=== PATIENT | male | born 1975 | race American Indian/Alaskan Native ===

== ENCOUNTER 2017-09-23 10:13 | Emergency (ER) | payer OTHER ==
[2017-09-23 10:22] VITALS: BP 150/83; PULSE 97; TEMP 97; O2SAT 98
[2017-09-23 10:23] VITALS: BMI 35.6
[2017-09-23] MEDS ORDERED: Tmp-Smz 800 mg-160 mg DS Tab PO ONE (11:21)
--- NOTE | 2017-09-23 11:26 | ED PDOC ---
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 Patient states pain shoots down the Left gluteal region and when sitting the pain is more severe. No wound discharge/bleeding is noted Denies fever/chills/sweats/bodyaches Denies chest pain/shortness of breath/palpitations Denies abdominal pain/nausea/vomiting Denies urinary symptoms/bowel change Denies urinary and bowel incontinence Denies any fall/trauma/sick contact/traveling plant operator's without other complaints Arrived to the ED for further evaluation. PMD: None Provided pt with prior boils in the past requiring I&D to right axilla/right inguinal region Past Medical History Reviewed: Historical Data, Nursing Documentation, Vital Signs Vital Signs: Last Vital Signs Temp 97 F L 09/23/17 10:21 Pulse 97 H 09/23/17 10:21 Resp BP 150/83 09/23/17 10:21 Pulse Ox 98 09/23/17 10:21 - Medical History PMH: Diabetes, Gastrointestinal Ulcer, HTN Denies: Alzheimer's Disease, Chronic Kidney Disease - Surgical History Surgical History: No Surg Hx - Family History Family History: States: Unknown Family Hx - Living Arrangements Living Arrangements: With Family - Social History Current smoker - smoking cessation education provided: No Ex-Smoker (has not smoked in the last 12 months): No Alcohol: None Drugs: Denies - Immunization History Hx Tetanus Toxoid Vaccination: Yes (3 years ago) Hx Influenza Vaccination: Yes Hx Pneumococcal Vaccination: No - Home Medications Home Medications: Ambulatory Orders Medication Instructions Recorded Doxycycline Hyclate [Doryx] 100 mg PO BID #14 cap 06/12/16 traMADol [Ultram] 50 mg PO TID #10 tab 06/12/16 Acetaminophen/Hydrocodone Bi 1 - 2 tab PO QID PRN #15 tab 09/23/17 [Vicodin 300 mg-5 mg] Ibuprofen [Motrin] 600 mg PO QID PRN #30 tab 09/23/17 Sulfamethoxazole/Trimethoprim 1 tab PO BID #19 tab 09/23/17 [Bactrim DS 800 mg-160 mg] - Allergies Allergies/Adverse Reactions: Allergies Allergy/AdvReac Type Severity Reaction Status Date / Time shrimp Allergy Intermediate RASH Verified 09/23/17 10:49 Review of Systems ROS Statement: Except As Marked, All Systems Reviewed And Found Negative Constitutional: Negative for: Fever, Chills, Sweats, Weakness Eyes: Negative for: Pain ENT: Negative for: Ear Pain, Nose Pain Cardiovascular: Negative for: Chest Pain, Palpitations Respiratory: Negative for: Cough, Shortness of Breath, SOB with Exertion Gastrointestinal: Negative for: Nausea, Vomiting, Abdominal Pain Genitourinary Male: Negative for: Dysuria, Frequency, Incontinence Musculoskeletal: Positive for: Back Pain (lower back discomfort radiating to left glutial region) Skin: Positive for: Other (possible boil on lower back ) Physical Exam - Reviewed Nursing Documentation Reviewed: Yes Vital Signs Reviewed: Yes (elevated BP) - Physical Exam Comments: General: alert/awake, GCS = 15, oriented x 3, resting/sitting on bed, uncomfortable, cooperative, interactive; NAD Head: NC/AT EYE: PERRLA, EOMI, sclera anicteric, no nystagmus, no photophobia; visual field intact b/l Facial: WNL Oral: uvula/tongue are midline, no exudate/lesions, no drooling/stridor, no dysphonia; intact dentitions NECK: intact ROM, no midline tenderness, no nuchal rigidity, no meningeal signs ; no step off Chest: CTA b/l, no w/r/r; no tachypenia, no accessory muscle use noted Cardiac: +S1, +S2, no m/r/r, no tachycardia Abdominal: +BS, soft/nd/nt, well nourished/obese patient; no masses/rebound/ guarding/rigidity; no gonzalez's sign, no mcburney's point tenderness RECTAL: noted slightly indurated lesion over the perry cleft of the buttocks ( left sided), 3x4 cm in size; NON-fluctuant; mild tenderness over the lesion site ; no gross skin erythema noted, no open wounds noted, no drainage/expressible discharge is noted; no foul smelling discharge is noted Extremities: intact ROM, strength 5/5 grossly intact in all limbs, neurovasc intact b/l; + ambulatory; reflex +2/2 BACK: no step off, no midline tenderness, NO crepitus, no gross deformities noted; Intact ROM SKIN: cap refill < 1 sec, no ulcerations, no petechiae, no rashes; as described above rectal finding NEURO: CNII-XII WNL, no facial asymmetries, no slurr speech, oriented x 3 NIH stroke scale ~ 0 Psych: normal insight, normal affect; follows command with ease - Laboratory Results Interpretation Of Abnormal: elevated gluc - ECG O2 Sat by Pulse Oximetry: 98 (RA) Pulse Ox Interpretation: Normal - Progress ED Course And Treament: pt is made aware of his medical results pt is encouraged warm compress 20min/hr over the next few days pt is encouraged obtaining a doughnut cushion so he can sit without severe pain pt is encouraged wound care pt will f/u as directed pt will be discharged home Re-evaluation Time: 11:35 Condition: Unchanged Medical Decision Making Medical Decision Making: Time: 1120 Plan: pilonidal abscess -- Bactrim DS Tablet 1 PO -- Accucheck -- observe -- supportive care Scribe Attestation: Documented by Stacia Worthington, acting as a scribe for Dr. Jeremy Cotter MD Provider Scribe Attestation: All medical record entries made by the Scribe were at my direction and personally dictated by me. I have reviewed the chart and agree that the record accurately reflects my personal performance of the history, physical exam, medical decision making, and the department course for this patient. I have also personally directed, reviewed, and agree with the discharge instructions and disposition. Disposition - Clinical Impression Clinical Impression: Pilonidal abscess, Hyperglycemia, Elevated blood pressure reading - Patient ED Disposition Is Patient to be Admitted: No Counseled Patient/Family Regarding: Diagnosis, Need For Followup, Rx Given - Disposition Referrals: [facility] [Outside] [facility] [place] [Outside] [facility] [Outside] PCP,NO [Non-Staff] - Jules Toney MD [Staff Provider] - Disposition: Routine/Home Disposition Time: 11:45 Condition: STABLE Additional Instructions: Make sure to see your doctor in 1-2 days DRINK PLENTY OF FLUIDS WARM soaks is encouraged 20min/hr over the next few days KEEP WOUND CLEAN AND DRY take your medications as prescribed RETURN TO ED IF worse pain, cant breath, persistent vomiting, high fever >101- 102 for hours, altered behavior, slurr speech, facial changes, focal weakness ( arm/leg or both), unable to urinate, heavy/persistent bleeding, passing out, chest pain, or other medical emergencies Prescriptions: Acetaminophen/Hydrocodone Bi [Vicodin 300 mg-5 mg] 1 - 2 tab PO QID PRN #15 tab PRN Reason: Pain, Moderate (4-7) Ibuprofen [Motrin] 600 mg PO QID PRN #30 tab PRN Reason: Pain, Mild (1-3) Sulfamethoxazole/Trimethoprim [Bactrim DS 800 mg-160 mg] 1 tab PO BID #19 tab Instructions: Boil, High Blood Pressure in Adults, Pilonidal Cyst, Blood Glucose Monitoring Forms: [facility] ([place]) Print Language: YAKUT
[2017-09-23] MEDS ORDERED: Tmp-Smz 800 mg-160 mg DS Tab ONE (11:46)
== END 2017-09-23 11:50 | disposition home or self-care (01) ==
LOC: H.ER 10:13
DX: L05.01 Pilonidal cyst with abscess (principal); E11.65 Type 2 diabetes mellitus with hyperglycemia; I10 Essential (primary) hypertension

== ENCOUNTER 2017-11-24 12:53 | Emergency (ER) | payer OTHER ==
[2017-11-24 12:57] VITALS: RESP 16; TEMP 97.8; O2SAT 98; BMI 35.9
[2017-11-24 13:36] VITALS: BP 129/80
[2017-11-24] MEDS ORDERED: Tmp-Smz 800 mg-160 mg DS Tab PO STA (13:36)
--- NOTE | 2017-11-24 14:02 | ED PDOC ---
HPI: Skin/Bite Injury Time Seen by Provider: 11/24/17 13:05 Chief Complaint (Nursing): Abnormal Skin Integrity Chief Complaint (Provider): Abnormal Skin Integrity History Per: Patient History/Exam Limitations: no limitations Onset/Duration Of Symptoms: Days (x3) Current Symptoms Are (Timing): Still Present Additional Complaint(s): Katy Hansen is a 42 year old male with a past medical history of hypertension and diabetes who is presenting to the ED for evaluation of painful bump on belt line, onset 3 days ago. Patient states that he just had lunch but did not take his Metformin this morning. He also denies any drainage from bump and also denies any fevers or chills. PMD: none provided Past Medical History Reviewed: Historical Data, Nursing Documentation, Vital Signs Vital Signs: Last Vital Signs Temp 97.8 F 11/24/17 12:56 Pulse 99 H 11/24/17 12:56 Resp 16 11/24/17 12:56 BP 129/80 11/24/17 13:36 Pulse Ox 98 11/24/17 14:02 - Medical History PMH: Diabetes, Gastrointestinal Ulcer, HTN Denies: Alzheimer's Disease, Chronic Kidney Disease - Surgical History Other surgeries: hemorrhoidectomy - Family History Family History: States: Unknown Family Hx - Social History Current smoker - smoking cessation education provided: Yes (light) Alcohol: Social Drugs: Denies - Immunization History Hx Tetanus Toxoid Vaccination: Yes (3 years ago) Hx Influenza Vaccination: Yes Hx Pneumococcal Vaccination: No - Home Medications Home Medications: Ambulatory Orders Medication Instructions Recorded Doxycycline Hyclate [Doryx] 100 mg PO BID #14 cap 06/12/16 traMADol [Ultram] 50 mg PO TID #10 tab 06/12/16 Acetaminophen/Hydrocodone Bi 1 - 2 tab PO QID PRN #15 tab 09/23/17 [Vicodin 300 mg-5 mg] Ibuprofen [Motrin] 600 mg PO QID PRN #30 tab 09/23/17 Sulfamethoxazole/Trimethoprim 1 tab PO BID #19 tab 09/23/17 [Bactrim DS 800 mg-160 mg] Ibuprofen [Motrin] 600 mg PO Q6H PRN #20 tab 11/24/17 Sulfamethoxazole/Trimethoprim 1 tab PO BID #13 tab 11/24/17 [Bactrim DS 800 mg-160 mg] - Allergies Allergies/Adverse Reactions: Allergies Allergy/AdvReac Type Severity Reaction Status Date / Time shrimp Allergy Intermediate RASH Verified 11/24/17 13:17 Review of Systems ROS Statement: Except As Marked, All Systems Reviewed And Found Negative Constitutional: Negative for: Fever, Chills Gastrointestinal: Positive for: Other (bump on abdomen) Physical Exam - Reviewed Nursing Documentation Reviewed: Yes Vital Signs Reviewed: Yes - Physical Exam Appears: Positive for: Well, Non-toxic, No Acute Distress Head Exam: Positive for: ATRAUMATIC, NORMAL INSPECTION, NORMOCEPHALIC Skin: Positive for: Normal Color, Warm, Dry Eye Exam: Positive for: EOMI, Normal appearance, PERRL ENT: Positive for: Normal ENT Inspection Neck: Positive for: Normal Cardiovascular/Chest: Positive for: Regular Rate, Rhythm. Negative for: Murmur Respiratory: Positive for: Normal Breath Sounds. Negative for: Respiratory Distress Gastrointestinal/Abdominal: Positive for: Normal Exam, Soft, Other ( cm area of erythema midline below umbilicus pustular no drainage ). Negative for: Tenderness Back: Positive for: Normal Inspection Extremity: Positive for: Normal ROM. Negative for: Deformity, Swelling Neurologic/Psych: Positive for: Alert, Oriented. Negative for: Motor/Sensory Deficits - ECG O2 Sat by Pulse Oximetry: 98 (RA) Pulse Ox Interpretation: Normal Medical Decision Making Medical Decision Making: Time: 13:17 Impression: abscess, cellulitis Plan: --Glucose, POC --Bactrim DS 1 tab PO --metFORMIN 500 mg PO --Wound Culture Scribe Attestation: Documented by Jocelyn Aguero, acting as a scribe for Gita Botello MD. Provider Scribe Attestation: All medical record entries made by the Scribe were at my direction and personally dictated by me. I have reviewed the chart and agree that the record accurately reflects my personal performance of the history, physical exam, medical decision making, and the department course for this patient. I have also personally directed, reviewed, and agree with the discharge instructions and disposition. Disposition - Clinical Impression Clinical Impression: Abscess of abdominal wall - Patient ED Disposition Is Patient to be Admitted: No - Disposition Disposition: Routine/Home Disposition Time: 14:01 Condition: STABLE Prescriptions: Ibuprofen [Motrin] 600 mg PO Q6H PRN #20 tab PRN Reason: Pain, Moderate (4-7) Sulfamethoxazole/Trimethoprim [Bactrim DS 800 mg-160 mg] 1 tab PO BID #13 tab Instructions: Boil Forms: [facility] ([place])
[2017-11-24 14:32] VITALS: PULSE 88
== END 2017-11-24 14:31 | disposition home or self-care (01) ==
LOC: H.ER 12:53
DX: L02.211 Cutaneous abscess of abdominal wall (principal); E11.9 Type 2 diabetes mellitus without complications; I10 Essential (primary) hypertension